=== PATIENT | male | born 1975 | race Caucasian/White ===

== ENCOUNTER 2022-09-08 05:37 | Day surgery (SDC) | payer MEDICARE, MEDICAID ==
[2022-09-07 08:32] VITALS: BMI 22.9
[2022-09-08] MEDS ORDERED: EPINEPHrine 1 MG/ML AMP ONE (06:42)
[2022-09-08] MEDS ORDERED: Bupivacaine PF 0.5% 30 ML VIAL ONE (06:42)
[2022-09-08] MEDS ORDERED: Ketamine 50 MG/ML (10ML VIAL) ONE (07:05)
[2022-09-08] MEDS ORDERED: Ondansetron PF 4 MG/2 ML Vial ONE (07:06)
[2022-09-08] MEDS ORDERED: Succinylcholine 200 MG/10 ml SYRINGE FS ONE (07:06)
[2022-09-08] MEDS ORDERED: Rocuronium Bromide 10 MG/ML (10ML VIAL) ONE (07:06)
[2022-09-08] MEDS ORDERED: PROPOFOL 20 ML ONE (07:06)
[2022-09-08] MEDS ORDERED: Lidocaine 1% PF 5 ML VIAL ONE (07:06)
[2022-09-08] MEDS ORDERED: Fentanyl 100 MCG/2 ML VIAL ONE ×2 (07:06→09:44)
[2022-09-08] MEDS ORDERED: Midazolam HCl 2 mg/2 ml Vial ONE (07:07)
[2022-09-08] MEDS ORDERED: CEFAZOLIN 2 GM VIAL ONE (07:30)
[2022-09-08] MEDS ORDERED: Dexamethasone 4 mg/ml Vial ONE (08:31)
[2022-09-08] MEDS ORDERED: Glycopyrrolate 0.2 MG/ML 5 ML SYRINGE ONE (08:46)
[2022-09-08] MEDS ORDERED: Dexmedetomidine 200 MCG/2 ML VIAL ONE ×2 (09:14→09:15)
[2022-09-08] MEDS ORDERED: HYDROcodone/Acetaminophen 5/325 mg Tablet PO PRN (10:06)
== END 2022-09-08 11:05 | disposition home or self-care (01) ==
LOC: CSHSDC 05:37
PROVIDERS: ATTEND Surgery
PROC: 0YU64JZ Supplement Left Inguinal Region with Synthetic Substitute, Percutaneous Endoscopic Approach (ICD-10-PCS; principal; 2022-09-08)
DX: K40.90 Unilateral inguinal hernia, without obstruction or gangrene, not specified as recurrent (principal); F79 Unspecified intellectual disabilities; Z79.82 Long term (current) use of aspirin; Z79.899 Other long term (current) drug therapy
CPT/HCPCS: 49650; C1713; J0171; J1100; J2250; J2405; J2704; J3010; S0020